=== PATIENT | male | born 1995 | race Caucasian/White ===

== ENCOUNTER → 2018-06-16 15:59 | Outpatient (CLI) | payer OTHER, SELFPAY ==
--- NOTE | 2018-06-16 16:02 | DI.MRI.S_ITS ---
PROCEDURE: MR ELBOW LT W CON INDICATIONS: PAIN IN LEFT ARM TECHNIQUE: Noncontrast coronal proton density fast spin echo and T2 fast spin echo with fat saturation, axial and sagittal T1 spin echo and T2 fast spin echo with fat saturation through the elbow. COMPARISON: None. FINDINGS: Image quality: Excellent. Lateral structures: The lateral ulnar collateral ligament and radial collateral ligament both appear intact. The overlying common extensor tendon also appears normal. Medial structures: The ulnar collateral ligament appears intact. The overlying common flexor tendon appears normal. The ulnar nerve appears normal in size and signal within the cubital tunnel. Anterior structures: The biceps and brachialis tendons both appear intact as they insert onto the proximal radius and ulna, respectively. No bicipitoradial bursal fluid. The median and radial neurovascular bundles appear normal; no focal muscle atrophy to suggest nerve impingement. Posterior structures: The conjoint triceps tendon from the long and lateral heads appears intact. The medial head of the triceps tendon also appears normal, with direct muscle insertion onto the olecranon. No olecranon bursal fluid. Bone and cartilage: No bone marrow contusions or fractures. No osteochondral injuries. IMPRESSION: Mild thickening of the distal insertion of the triceps tendon raising possibility of chronic or subacute tendinopathy, given the relative paucity of soft tissue edema. Please correlate clinically. Elsewhere, no definite internal derangement seen. Dictated by: Juancarlos Yao M.D. on 06/16/2018 at 16:46 Approved by: Juancarlos Yao M.D. on 06/16/2018 at 16:53
== END ==
PROVIDERS: Visit Provider Nurse Practitioner Family
DX: M79.602 Pain in left arm (principal)
CPT/HCPCS: 73221

== ENCOUNTER → 2018-07-08 12:51 | Outpatient (CLI) | payer OTHER, SELFPAY ==
[2018-07-08 13:41] LABS: Hematocrit 42.3 % (41-53); Hemoglobin 14.5 g/dL (13.5-17.5); Mean Corpuscular HGB Conc 34.3 % (30-36); Mean Corpuscular Hemoglobin 30.9 PG (26-34); Platelet Count 287 X10^3/uL (150-400); Red Cell Distribution Width 12.8 % (11.6-14.8); White Blood Cell Count 9.6 X10^3/uL (4.5-11.0)
== END ==
PROVIDERS: Visit Provider Orthopaedic Surgery Orthopaedic Surgery of the Spine
DX: Z01.818 Encounter for other preprocedural examination (principal)
CPT/HCPCS: 36415; 85027

== ENCOUNTER 2018-07-10 13:49 | Day surgery (SDC) | payer OTHER, SELFPAY ==
[2018-07-09 10:11] VITALS: BMI 29.9
--- NOTE | 2018-07-10 | DI.RAD.S_ITS ---
PROCEDURE: XR LUMBAR SPINE 2-3V INDICATIONS: L4-L5 MIRCODISCETCOMY TECHNIQUE: AP and lateral views of the lower lumbar spine were acquired. COMPARISON: None. FINDINGS: Intraoperative fluoroscopy demonstrates instrumentation of the posterior lower lumbar spine at approximately the L4-L5 level. IMPRESSION: Intraoperative fluoroscopy demonstrates instrumentation of the posterior lower lumbar spine at approximately the L4-L5 level. Please see operative report for further details. Dictated by: Orlando Ames M.D. on 07/10/2018 at 18:51 Approved by: Orlando Ames M.D. on 07/10/2018 at 18:53
[2018-07-10 14:16] VITALS: BP 115/76; PULSE 78; RESP 16; TEMP 36.8; O2SAT 96; BMI 29.9
[2018-07-10] MEDS: LACTATED RINGERS 1,000 ML 42 ML IV (14:42)
--- NOTE | 2018-07-10 15:38 | PM.PREOP ---
Pre-operative Note Interval Note Pre-op Check: Yes History & Physical Reviewed by Physician, Yes Exam Performed and Yes History & Physical exam performed today by Physician Changes: No
[2018-07-10] MEDS: CEFAZOLIN 2 GM/100 ML FROZ.PIGGY IV (15:58)
--- NOTE | 2018-07-10 16:37 | SUR.OPER ---
Prone on spine table, head in foam head support, padded chest and pelvic supports, gel pad at knees, lower legs supported by pillows; nipples, genitalia and toes free of pressure, arms secured on foam padded arm boards at <90 degrees abduction. Tape over blanket at thigh secured to table.
[2018-07-10] MEDS: methylPREDNISolone acet DEPO 40 MG/ML VIAL INJ (16:50)
[2018-07-10] MEDS: BUPIVACAINE 0.25% W/ EPI VIAL 50 ML INJ (16:50)
--- NOTE | 2018-07-10 17:39 | P.OP_ITS ---
Operative Date/Time/Diagnoses Date of procedure: 07/10/18 Time of procedure: 14:34 Pre-op diagnosis: 1. L4-5 lumbar disc herniation 2. Lumbar radiculopathy Post-op diagnosis: same Procedure & Clinicians Procedure: 1. L4-5 left microdiscectomy 2. Utilization of microsurgical technique and operating microscope Same procedure as scheduled: Yes Indications: Patient has been having chronic back pain and worsening lumbar radiculopathy. Patient failed multiple conservative management with worsening pain weakness and numbness in her lower extremity. Patient has been having difficulty performing activity of daily living. After discussing risks benefits of treatment options, patient elected proceed with surgery. Patient has been having chronic back pain and worsening lumbar radiculopathy. Patient failed multiple conservative management with worsening pain weakness and numbness in her lower extremity. Patient has been having difficulty performing activity of daily living. After discussing risks benefits of treatment options, patient elected proceed with surgery. Surgeon: Geena Webber [employer]ire Fabricator: Mayi Doss Click Yes if Unassisted: No Anesthesia Type: General Operative Notes Closure Type: primary Estimated Blood Loss (mL): 10 Blood products transfused: none Procedure in detail: Patient was seen in the preoperative area. Risks and benefits of the surgery was discussed with the patient. Informed consent was obtained from the patient and placed in the chart. Surgical site was marked. Patient was taken to the operative room. General anesthesia was administered. Prophylactic antibiotic was given to the patient less than 30 min before the incision was made. Patient was placed into a prone position on the Arnulfo table. Patient's back was then prepped and draped in the sterile fashion. Time- out was performed at this time. Using AP and lateral C-arm imaging the interval between L4-5 was identified and marked on patient's back. Patient has transitional anatomy. Comparison was made with his MRI versus the C-arm taken in the operating room to confirm the level for the surgery. A 1 inch incision 1 in from midline was made on the left side. The fascia was incised in line with skin incision. Globus MARS retractors was placed inside the incision and docked onto the L4 lamina. Using microsurgical technique and operating microscope, a L4-5 laminotomy was performed using a Kerrison rongeur. Liagamentum flavum was resected at the site of the laminotomy. The disc space at L4-5 was identified. Microdiscectomy was performed by incising the annulus with #11 blade. Microcurettes and pituitary was used to removed herniated disc fragments of disc from the epidural space. There was significant amount of herniated disc material that was sent a stuck to the dura and the posterior aspect of the vertebral body of L4. Careful resection and dissection was made to free up the disc fragments and pituitary was used to remove fragments from the epidural space. After the microdiskectomy was completed, the area medial lateral superior and inferior to the area of the microdiskectomy was inspected and explored using a micro curette. No other impinging structure was identified. The wound was then irrigated with sterile normal saline. 40 mg Depo-Medrol was placed into the epidural space. The deep fascia was closed with 1-0 Vicryl. The subcutaneous tissue was closed with 2-0 Vicryl. The skin was closed with 4- 0 Monocryl. Patient tolerated the procedure well. There were no complications. Patient was transferred recovery room in stable condition. Complications: none Condition: stable Disposition: PACU Plan for aftercare: Discharge to home
[2018-07-10 17:50] VITALS: BP 117/44; PULSE 86; RESP 6; TEMP 37.3; O2SAT 95
[2018-07-10 17:55] VITALS: BP 111/44; PULSE 84; RESP 8; O2SAT 97
[2018-07-10 18:00] VITALS: BP 119/80; PULSE 113; RESP 11; TEMP 36.9; O2SAT 99
[2018-07-10 18:05] VITALS: BP 110/70; PULSE 87; RESP 6; TEMP 36.9; O2SAT 95
[2018-07-10 19:08] VITALS: BP 113/59; PULSE 80; RESP 6; TEMP 36.9; O2SAT 100
== END 2018-07-10 19:10 | disposition home or self-care (01) ==
PROVIDERS: PCP Nurse Practitioner Family; Visit Provider Orthopaedic Surgery Orthopaedic Surgery of the Spine
PROC: (CPT 63030; principal; 2018-07-10 15:15)
DX: M51.16 Intervertebral disc disorders with radiculopathy, lumbar region (principal)
CPT/HCPCS: 63030; 72100; 76000; J0690; J1030; J1100; J2250; J2405; J2704; J3010

== ENCOUNTER → 2019-06-13 12:06 | Outpatient (CLI) | payer OTHER, SELFPAY ==
--- NOTE | 2019-06-13 | DI.MRI.S_ITS ---
PROCEDURE: MR LUMBAR SPINE WO CON INDICATIONS: Intervertebral disc disorders with radiculopathy, TECHNIQUE: Noncontrast sagittal T1 spin echo and T2 fast echo, sagittal STIR, axial T1 and T2 fast spin echo through the lumbar spine. In cases with scoliosis, additional coronal T2 fast spin echo may be performed. COMPARISON: [facility] [place], CR, XR LUMBAR SPINE 2 OR 3 VIEWS, 06/03/2019, 15:25. FINDINGS: Image quality: Excellent. Alignment and Curvature: There is normal bony alignment. There is partial lumbarization of S1. There is a rudimentary S1-S2 disc. Axial imaging was obtained from T12-L1 through S1-S2 Bone Marrow: Marrow is of normal overall signal. No acute vertebral body compression fractures. Spinal Cord: Conus medullaris terminates at the L1 level. Visualized cord demonstrates normal signal and size. Paraspinous Soft Tissues: No paravertebral masses. T12-L1: No canal stenosis or foraminal stenosis. L1-L2: Normal appearance. L2-L3: Normal appearance. L3-L4: Normal appearance. L4-L5: Mild disc bulge. Facet joints are unremarkable. No canal stenosis or foraminal stenosis. L5-S1: Annulus tear associated with mild diffuse disc bulge, which abuts the bilateral S1 nerve roots in the lateral recesses. Bilateral facet joint hypertrophy. Mild bilateral foraminal narrowing. S1-S2: Unremarkable. IMPRESSION: 1. Rudimentary S1-S2 disc. Axial imaging from T12-L1 through S1-S2. 2. Annulus tear this diffuse disc bulge at L5-S1. The S1 nerve roots are abutted bilaterally in the lateral recesses. 3. Bilateral facet hypertrophy at L5-S1. Dictated by: Faisal Bradshaw M.D. on 06/13/2019 at 20:31 Approved by: Faisal Bradshaw M.D. on 06/13/2019 at 20:37
== END ==
PROVIDERS: PCP Nurse Practitioner Family; Visit Provider Orthopaedic Surgery Orthopaedic Surgery of the Spine
DX: M51.16 Intervertebral disc disorders with radiculopathy, lumbar region (principal); M51.17 Intervertebral disc disorders with radiculopathy, lumbosacral region
CPT/HCPCS: 72148

== ENCOUNTER → 2020-02-05 15:13 | Outpatient (CLI) | payer OTHER, SELFPAY ==
[2020-02-07 00:59] LABS: COVID19 Sendout Not Detected (Not Detect)
== END ==
PROVIDERS: PCP Nurse Practitioner Family; Visit Provider Nurse Practitioner
DX: Z11.59 Encounter for screening for other viral diseases (principal)
CPT/HCPCS: 87635

== ENCOUNTER 2020-02-08 11:27 | Day surgery (SDC) | payer OTHER, SELFPAY ==
[2020-02-01 10:00] VITALS: BMI 30.1
[2020-02-08] VITALS (15 sets, daily range): BP systolic 103–149; BP diastolic 52–114; PULSE 71–120; RESP 10–23; TEMP 36.2–36.8; O2SAT 94–100; BMI 30.1
--- NOTE | 2020-02-08 | DI.RAD.S_ITS ---
PROCEDURE: XR LUMBAR SPINE 2-3V INDICATIONS: L4-5 TLIF TECHNIQUE: Two views of the lumbar spine were acquired. COMPARISON: [facility], CR, XR LUMBAR SPINE 2-3V, 07/10/2018, 16:35. FINDINGS: Bones: There is normal alignment is stab wished after transverse pedicle screw placement and vertical fixation thierry placement bilaterally crossing L4-L5, within interbody disc cage prosthesis in central position at this level. Soft tissues: Overlying bowel gas pattern is normal. No suspicious soft tissue calcifications. IMPRESSION: Normal alignment after spine fusion as discussed above. Dictated by: Abdoul Nagy M.D. on 02/08/2020 at 16:34 Approved by: Abdoul Nagy M.D. on 02/08/2020 at 16:36
[2020-02-08] MEDS: LACTATED RINGERS 1,000 ML 42 ML IV ×2 (11:56→15:47)
--- NOTE | 2020-02-08 13:03 | PM.PREOP ---
Pre-operative Note COVID-19 COVID-19 status: Negative Result date/Date tested (Pos, Neg/Pending): 02/06/20 Interval Note History & Physical reviewed/Exam performed by Physician: Yes Changes to H&P: No
[2020-02-08] MEDS: CEFAZOLIN 2 GM/100 ML FROZ.PIGGY IV ×2 (13:58→21:02)
[2020-02-08] MEDS: ACETAMINOPHEN IV 1,000 MG/100 ML VIAL 400 MG IV (14:27)
[2020-02-08] MEDS: BUPIVACAINE LIPOSOME 266 MG/20 ML VIAL INJ (14:50)
[2020-02-08] MEDS: BUPIVACAINE 0.25% W/ EPI 30 ML VIAL INJ (14:50)
--- NOTE | 2020-02-08 16:34 | P.OP_ITS ---
Operative Date/Time/Diagnoses Date of procedure: 02/08/20 Time of procedure: 13:34 Pre-op diagnosis: 1. L4-5 recurrent disc herniation 2. L4-5 spinal stenosis with radiculopathy Post-op diagnosis: same Procedure & Clinicians Procedure: 1. L4-5 Postero-lateral and posterior interbody fusion 2. L4-5 interbody cage placement. 3. L4-5 decompressive laminectomy with bilateral facetecomies 4. L4-5 Posterior non-segmental instrumentation 5. [place] of bone marrow from iliac crest 6. Utilization of microsurgical technique and operating microscope Same procedure as scheduled: Yes Indications: Patient has been having chronic back pain and worsening lumbar radiculopathy. Patient failed multiple conservative management with worsening pain weakness and numbness in her lower extremity. Patient has been having difficulty performing activity of daily living. After discussing risks benefits of treatment options, patient elected proceed with surgery. Surgeon: Geena Webber Weight Trainer: Debbie Cervantes Click Yes if Unassisted: No Anesthesia Type: General Operative Notes Closure Type: primary Specimen(s): none sent Prosthetic devices, grafts, tissues, transplants, or devices: Globus revolve screws, Rise cage Estimated Blood Loss (mL): 50 Procedure in detail: Patient was seen in the preoperative area. Risks and benefits of the surgery was discussed with the patient. Informed consent was obtained from the patient and placed in the chart. Surgical site was marked. Patient was taken to the operative room. General anesthesia was administered. Prophylactic antibiotic was given to the patient less than 30 min before the incision was made. Patient was placed into a prone position on the Arnulfo table. Patient's back was then prepped and draped in the sterile fashion. Time- out was performed at this time. Using AP and lateral C-arm imaging the interval between L4-5 was identified and marked on patient's back. A 2 inch incision 2 in from midline was made on the left side first. The fascia was incised in line with skin incision. Globus MARS retractors was placed inside the incision and docked onto the L4 lamina. Using microsurgical technique and operating microscope, a L4 laminectomy and L4-5 facetectomy was performed using a Kerrison rongeur. The disc space at L4-5 was identified. And a total diskectomy was performed at L4-5 level. The endplates were decorticated using a rasp and shaver. Patient was found have severe neural foramen stenosis along with epidural adhesion from previous microdiskectomy. The stenosis was decompressed and the epidural scar and adhesion was carefully resected with Kerrison rongeur. The total diskectomy and decortication was performed at L4-5 level in order to to accomplish a L4-5 fusion. The local bone from the laminectomy and facetectomy was saved for local bone grafting. After the total diskectomy and decortication was completed, Trifecta bone graft material was combined with local bone that was harvested earlier. At this time, a separate skin is incision was made over the iliac crest. A Jamshidi needle was inserted into the iliac crest through a separate skin incision. 5 cc of bone marrow aspiration was obtained through the separate skin incision using a Jamshidi needle from the iliac crest. The bone marrow aspiration was combined with local bone and the Trifecta bone grafting material. The bone grafting material was placed into the L4-5 interbody space along with a expandable cage. The cage was expanded to its maximum height using the torque limiting screwdriver. At this time a mirror image incision was made on the right side. The fascia was incised in line with the skin incision. Globus MARS retractor was inserted and docked onto the L4-5 posterolateral gutter. Using the power drill, posterior- lateral decortication was performed at L4-5 level until bleeding cortical bone was identified. The remaining bone grafting material was placed into the L4-5 posterior lateral gutter he order to accomplish posterolateral fusion at the L4- 5 level. Using the double C-arm technique, pedicle screws were placed into the L4-5 pedicles bilaterally. This was done by placing the Jamshidi needle into the pedicles, then placing the guidewires over the Jamshidi needle, and finally suresh cing the cannulated screws over the guidewires bilaterally. After the pedicle screws were placed, 2 titanium rods was locked into the heads of the pedicle screws using locking caps and torque limiting screwdriver. After all the hardware was placed, and confirmed with AP and lateral C-arm imaging, the wound was then irrigated with sterile normal saline and packed with Ray-Osbaldo gauze for 3 min to accomplish hemostasis. After the gauze was removed the deep fascia was closed with #1 Vicryl suture. The subcutaneous layer was closed with 2-0 Vicryl. The skin was closed with skin susannah. Patient tolerated the procedure well. There were no complications. Complications: none Post-operative Condition: stable Disposition: PACU Plan for aftercare: Admit to inpatient hospital
[2020-02-08] MEDS: MEPERIDINE 50 MG/ML INJ 25 MG IV (16:51)
--- NOTE | 2020-02-08 17:05 | SUR.PHASEI ---
Patient teary, reported this is the first time his leg has not hurt, only his back hurts.
[2020-02-08] MEDS: hydrOXYzine 50 MG/ML INJ 25 MG IM (17:14)
--- NOTE | 2020-02-08 17:33 | SUR.PHASEI ---
Patient reported being able to feel the SCD squeezing on his previously numb toes.
--- NOTE | 2020-02-08 18:07 | SUR.PHASEI ---
Patient transferred to the floor. Report given to Brina. VS stable, o2 sats have dropped into the 70s and 80s while dozing, patient rouses self and sats increase to mid 90s. IV saline locked, pink area above the IV site resolving. Back dressing CDI. Belongings bag, brace and cane with patient.
[2020-02-08] MEDS: OXYCODONE IR 5 MG TABLET 10 MG PO ×2 (19:03→22:46)
[2020-02-08] MEDS: hydrOXYzine pamoate 25 MG CAPSULE PO (19:04)
[2020-02-08] MEDS: SODIUM CHLORIDE 0.9% 1,000 ML 100 ML IV (20:00)
[2020-02-08] MEDS: SENNOSIDES 8.6 MG TABLET 17.2 MG PO (21:02)
[2020-02-08] MEDS: diphenhydrAMINE 25 MG TABLET PO (21:02)
[2020-02-08] MEDS: DULOXETINE 30 MG CAPSULE PO (21:02)
[2020-02-08] MEDS: DOCUSATE 100 MG CAPSULE PO (21:02)
[2020-02-08] MEDS: HYDROMORPHONE 0.5 MG INJ IV (21:09)
--- NOTE | 2020-02-08 21:30 | PC.NURSE ---
Admit/Evening Shift Note- Patient arrived to room via bed from PACU at 1800. Patient alert and oriented and able to make needs known to staff. Admission questions done, medications and allergies [id number], physical assessment completed, and skin check done. Oriented patient to bed and bed controls, room , lights, phone, menu, bathroom, and call lyon/TV remote. dressing to lower back C/D/I. Safety measures in place. patient agrees to call for assistance. Bed alarm activated. call lyon and phone within reach. will continue to monitor.
[2020-02-09 00:25] VITALS: BP 117/58; PULSE 71; RESP 18; TEMP 36.2; O2SAT 98
[2020-02-09] MEDS: OXYCODONE IR 5 MG TABLET 10 MG PO ×4 (01:38→13:12)
--- NOTE | 2020-02-09 03:38 | PC.NURSE ---
Pt resting comfortably. Q 4 neuro checks WNL. Notes normal numbness in L leg and some numbness in bilateral toes. Pain located lumbar area, medicated w/Oxycodone w/good results.
[2020-02-09 05:54] VITALS: BP 132/75; PULSE 76; RESP 18; TEMP 36.4; O2SAT 100
[2020-02-09] MEDS: CEFAZOLIN 2 GM/100 ML FROZ.PIGGY IV (05:59)
--- NOTE | 2020-02-09 07:58 | PM.DS.1 ---
History of Present Illness History of Present Illness Chief complaint: *OPB* Discharge Providers Provider Discharge Date: 02/09/20 Primary care physician: Sina Cobos Consults: 02/08/20 18:08 Consult to Occupational Therapy Evaluate & Treat Comment: Physician Instructions: Evaluate and treat Consult to Physical Therapy Evaluate & Treat Comment: Physician Instructions: Evaluate and Treat Discharge provider: Geena Webber MD Exam Vital Signs (past 8 hours): - 02/09/20 00:25 02/09/20 05:54 Temperature 97.1 F L 97.6 F Pulse Rate 71 76 Respiratory Rate 18 18 Blood Pressure 117/58 L 132/75 Pulse Oximetry 98 100 Oxygen Delivery Method Nasal Cannula Oxygen Flow Rate 2 Discharge Plan Discharge Plan Patient Disposition: Home Discharge Med Rec/Prescriptions Prescriptions: New oxycodone 5 mg Tablet 5 - 10 mg PO Q4-5H PRN (Reason: Pain, Severe (7-10)) Qty: 80 RF: 0 hydroxyzine pamoate 25 mg Capsule 25 mg PO Q4HR PRN (Reason: Nausea And Vomiting) Qty: 50 RF: 0 Continued rizatriptan [Maxalt] 10 mg Tablet 5 mg PO DAILY PRN (Reason: Migraines) RF: 0 duloxetine 30 mg Capsule,Delayed Release(Dr/Ec) 30 mg PO SEEINSTR RF: 0 diphenhydramine HCl [Benadryl] 25 mg Capsule 25 mg PO BEDTIME RF: 0 Discontinued naproxen 500 mg Tablet 500 mg PO DAILY RF: 0 Discharge Orders: Discharge (Order); Ordered 02/09/20 Ordered By: Geena Webber Provider Discharge Instructions Diet: Diet as Tolerated and Regular Activity: Limit bending and twisting Skin/Wound/Dressing Care Report to your healthcare provider any signs of infection, such as:: chills, fever, night sweats, increased pain, unusual drainage and unusual redness Dressing: Keep dressing clean and dry May shower with dressing covered starting today Visit Report/Discharge Packet Instructions: DI for Transforaminal Lumbar Interbody Fusion Stand Alone Forms: Surgery Discharge Discharge Data Primary Care Provider: Sina Cobos Attending Provider: Geena Webber VTE Deep Vein Thrombosis/Pulmonary Embolism Present on Admission: No
[2020-02-09 08:13] VITALS: BP 130/59; PULSE 100; RESP 16; TEMP 36.4; O2SAT 99
[2020-02-09] MEDS: DOCUSATE 100 MG CAPSULE PO (08:41)
[2020-02-09] MEDS: NAPROXEN 250 MG TABLET 500 MG PO (08:42)
[2020-02-09] MEDS: DULOXETINE 30 MG CAPSULE 60 MG PO (08:42)
[2020-02-09 08:47] VITALS: PULSE 97; RESP 18; O2SAT 99
--- NOTE | 2020-02-09 09:24 | OT.IP.EVAL ---
Current Diagnoses Intervertebral disc disorders with radiculopathy, lumbar region (02/08/20) Surgery Performed Operation Date: 11/09/19 12:45 <No data on this case meets the specified criteria> Operation Date: 02/08/20 13:45 Actual Procedures p L4-5 TLIF - Geena Webber MD Past Medical History (Last Updated 02/01/20 @ 10:13 by Danielle Dias RN) Anxiety (Acute) Arthritis (Acute) Depression (Acute) Headache, migraine (Acute) Lumbar disc prolapse with compression radiculopathy (Acute) Radiculopathy, lumbosacral region (Acute) Sciatica (Acute) Stomach ulcer (Acute) Surgical History (Last Updated 02/01/20 @ 10:13 by Danielle Dias RN) History of colonoscopy (Acute 2018) History of esophagogastroduodenoscopy (EGD) (Acute 2018) Hx of microdiscectomy (Acute 06/2018) S/P epidural steroid injection (Acute) [place] teeth removed (Acute) Occupational Therapy Inpatient Evaluation/Re-Eval M1 PT/OT-IP Prior Functional Status Start: 02/09/20 12:15 Freq: NEEDED Status: Active Protocol: Document 02/09/20 08:43 [facility] (Rec: 02/09/20 12:32 [facility] [id number]) Medical Review Prior Functional Status Medical History Reviewed Yes Communication Pt is an effective verbal communicator. Mobility and Gait Pt is modified independent and able to walk up to 300 feet without assisted device. He uses a SPC for longer distances. He has L LE radiculopathy, atrophy, and weakness at baseline. Activities of Daily Living and IADL's Pt is IND with ADL's though he notes dressing has been slow and labored. Social History Household Members none Living Arrangements Apartment/Condo Number of Stairs To Enter/Railing? Pt lives in a third floor apartment with two flights of stairs. There are wide B hand rails. Pt tends to use the left rail going up and down. 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 He lives alone but has a co- worker, Kun, who plans to check on him every 3-4 hours as needed to offer assist. M2 OT-IP Current Condition Start: 02/09/20 12:15 Freq: Status: Active Protocol: Document 02/09/20 08:43 [facility] (Rec: 02/09/20 12:32 [facility] [id number]) Occupational Therapy Current Condition Current Condition Evaluation Date 02/09/20 Treatment Diagnosis Spinal Stenosis, s/p L4-5 TLIF Diagnosis Onset Date 02/08/20 Post Operative Precautions Lumbar Precautions Log Roll,No Twisting,Limit Bending,Lifting Restriction of 10 lbs,Gait Belt above Incisional Area M3 OT- IP Subjective and Pain Start: 02/09/20 12:15 Freq: Status: Active Protocol: Document 02/09/20 08:43 [facility] (Rec: 02/09/20 12:32 [facility] [id number]) OT- Subjective Occupational Therapy Visit Type Type Initial Evaluation Visit Start Time 08:43 Visit Stop Time 09:24 Total Visit Minutes 51 Occupational Therapy Visit Comments Patient Comments Pt wiling to do OT eval and PT present for part of the session. Patient/Caregiver Goals To go home. OT Pain Assessment Pain When Pain Assessed During Mobility Pain Present Pain Present Pain Reported Location right wrist Intensity 6 Scale Used Numeric (0 - 10) M4 OT- IP ADL's Start: 02/09/20 12:15 Freq: Status: Active Protocol: Document 02/09/20 08:43 [facility] (Rec: 02/09/20 12:32 [facility] [id number]) OT ALK-Ybwa-Vgjrcar General Evaluation Self-Feeding Ability Independent OT ADL-Grooming General Evaluation Grooming Ability Standby Assistance Areas Needing Assistance Retrieving/Set-up of Grooming Items Comments OT Grooming Comments VC to incorporate back precautions for needs. Educated to hinge at hips or spit into a cup. OT ADL-Oral Care General Eval Oral Care Ability Independent OT ADL-Dressing General Eval Lower Body Dressing Ability Maximum Assistance Areas Needing Assistance Socks Comments OT Dressing Comments Able to issue LB dresing equipment and pt not able to independently after education aury/doff his socks. Pt has tie shoes at home and may be best for friend to assist anyways if going out. OT ADL-Toileting General Evaluation Toileting Ability Standby Assistance Comments OT Toileting Comments Educated pt to stand with FWW over the toilet. Pt able to sit to toilet but heavy use of FWW to help lower himself down to the toilet. VC for back precautions to lean to one side and wipe or stand to wipe. In addition use of wet wipe can help to increased his ease for hygiene needs. OT ADL-Bathing Comments OT Bathing Comments Pt not wanting to shower at this time. Pt may need a shower chair pending his balance and have friend around for the first shower as well. M5 OT- IP IADL's Start: 02/09/20 12:15 Freq: Status: Active Protocol: Document 02/09/20 08:43 [facility] (Rec: 02/09/20 12:32 [facility] [id number]) OT-Instrumental Activities of Daily Living Home Safety Awareness Awareness of Need for Assistance at Home Good Awareness Ability to Problem Solve Emergency Able to Problem Solve Situations Medication Management Medication Management No Deficits Identified Money Management Money Management No Deficits Identified Meal Preparation Meal Preparation Caregiver Provides Assist Farm Assistant Farm Assistant Caregiver Provides Assist Driving Driving Caregiver Provides Assist M6 OT- IP Functional Cognition Start: 02/09/20 12:15 Freq: Status: Active Protocol: Document 02/09/20 08:43 [facility] (Rec: 02/09/20 12:32 [facility] [id number]) Cognitive Factors Limiting Selfcare Function Cognitive Ability Level of Alertness Alert Patient Orientation Name,Age,Birthday,Month,Date, Year,Day of Week,Place, Situation Attention Span Ability Capable of Focused Attention, Capable of Sustained Attention Ability to Follow Commands Able to Follow Multi-Step Commands Memory Description No Deficits Noted Safety Awareness No Deficits Noted Cognitive Comments Cognitive Assessment Comments Pt able to recall back precautions and appears at baseline with no cognitive deficits. OT- Vision and Hearing OT- Hearing Assessment OT- Hearing Assessment WFL OT- Vision Assessment Visual Acuity WFL M7 OT- IP Mobility and Balance Start: 02/09/20 12:15 Freq: Status: Active Protocol: Document 02/09/20 08:43 [facility] (Rec: 02/09/20 12:32 [facility] [id number]) OT- Bed Mobility Assessment Rolling Level of Assistance Minimal Assistance Supine to Sit Supine to Sit Assist Minimal Assistance OT-Transfer Assessment Sit to and From Stand Sit to and from Stand Standby Assistance,Contact Guard Assistance Transfers Transfer Ability Standby Assistance,Contact Guard Assistance Technique Transfer Destination Bed,Chair,Toilet Transfer Technique Stand Step Pivot Devices Transfer Assistive Devices Gait Belt,Front Wheeled Walker Comments Mobility Comments Pt heavy use of FWW to help stand from lower surfaces especially if not able to push or use of grab bar. CGA when up on his feet and on level surfaces able to be SBA with FWW. Pt may need FWW , PT to assess whether pt will need FWW versus his SPC. OT- Balance Assessment Sitting Balance and Reactions Static Sitting Balance Ability Normal Dynamic Sitting Balance Ability Good Standing Balance and Reactions Static Standing Balance Ability Good Dynamic Standing Balance Ability Fair M8 OT- IP Objective Assessments Start: 02/09/20 12:15 Freq: Status: Active Protocol: Document 02/09/20 08:43 [facility] (Rec: 02/09/20 12:32 [facility] [id number]) OT Gross Range of Motion Upper Extremity Range of Motion Assessment Within Functional Limits OT Strength Upper Extremity Strength Assessment Within Functional Limits OT-Muscle Tone Assessment Muscle Tone WNL Yes M9 OT- IP Assessment and Plan Start: 02/09/20 12:15 Freq: Status: Active Protocol: Document 02/09/20 08:43 [facility] (Rec: 02/09/20 12:32 [facility] [id number]) OT Summary Assessment and Plan Potential Rehabilitation Potential Good Analytic Complexity at Evaluation Low Summary OT Impairments Pain,Functional Mobility, Dressing,Bathing,Shower Transfers Progress Towards Goals Progressing Toward Goals Assessment Summary Pt low complexity and main barrier is his flights of steps to get to his apartment . Pt now having to use FWW as a little unsteady and may need to had FWW order prior to discharge. Pt has been given LB dressing equipment and has good understanding and safety for dressing and toileting needs. Pending discharge, pt would benefit from showering prior to going home to help determine whether he will need a shower chair at home for safety. When stable, pt to go home with friend to come and assist every3-4 hours. Goals Dressing Goal Independent Toileting Goal Independent Bathing Goal Independent Toilet Transfer Goal Independent Shower Transfer Goal Independent Patient/Caregiver Education Goal Demonstrate Post-Op Precautions Days to Meet Goals 2 Frequency of Treatment Frequency Of Treatment Once a Day Treatment Plan OT Treatment Plan ADL Training,Functional Mobility,Patient/Family Education,Discharge Planning Other Treatment Recommendations and Next Shower if still here Treatment Focus Discharge Recommendations OT Discharge Recommendations Home with Assistance Home Equipment Needs possibly FWW and shower chair Transportation Needs at Discharge Private Vehicle
--- NOTE | 2020-02-09 10:06 | PT.IIE ---
Current Diagnoses Intervertebral disc disorders with radiculopathy, lumbar region (02/08/20) Surgery Performed Operation Date: 11/09/19 12:45 <No data on this case meets the specified criteria> Operation Date: 02/08/20 13:45 Actual Procedures p L4-5 TLIF - Geena Webber MD Surgical History (Last Updated 02/01/20 @ 10:13 by Danielle Dias, RN) History of colonoscopy (Acute 2018) History of esophagogastroduodenoscopy (EGD) (Acute 2018) Hx of microdiscectomy (Acute 06/2018) S/P epidural steroid injection (Acute) [place] teeth removed (Acute) Medical History (Last Updated 02/01/20 @ 10:13 by Danielle Dias RN) Anxiety (Acute) Arthritis (Acute) Depression (Acute) Headache, migraine (Acute) Lumbar disc prolapse with compression radiculopathy (Acute) Radiculopathy, lumbosacral region (Acute) Sciatica (Acute) Stomach ulcer (Acute) Physical Therapy Inpatient Evaluation/Re-Eval M1 PT/OT-IP Prior Functional Status Start: 02/09/20 08:31 Freq: NEEDED Status: Active Protocol: Document 02/09/20 09:42 AW (Rec: 02/09/20 10:06 AW [id number]) Medical Review Prior Functional Status Medical History Reviewed Yes Communication Pt is an effective verbal communicator. Mobility and Gait Pt is modified independent and able to walk up to 300 feet without assistive device. He uses a SPC for longer distances. He has L LE radiculopathy, atrophy, and weakness at baseline. Activities of Daily Living and IADL's Pt is IND with ADL's though he notes dressing has been slow and labored. Social History Household Members none Living Arrangements Apartment/Condo Number of Stairs To Enter/Railing? Pt lives in a third floor apartment with two flights of stairs. There are wide B hand rails. Pt tends to use the left rail going up and down. 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 He lives alone but has a co- worker, [place], who plans to check on him every 3-4 hours as needed to offer assist. M2 PT-IP Current Condition Start: 02/09/20 08:31 Freq: NEEDED Status: Active Protocol: Document 02/09/20 09:42 AW (Rec: 02/09/20 10:06 AW [id number]) Physical Therapy Current Condition Current Condition Evaluation Date 02/09/20 Treatment Diagnosis L4-5 TLIF; difficulty in walking Onset Date 02/08/20 Precautions Lumbar Precautions Log Roll,No Twisting,Limit Bending,Lifting Restriction of 10 lbs,Gait Belt above Incisional Area M3 PT-IP Subjective Start: 02/09/20 08:31 Freq: NEEDED Status: Active Protocol: Document 02/09/20 09:42 AW (Rec: 02/09/20 10:06 AW [id number]) Subjective Physical Therapy Visit Type Type Initial Evaluation Visit Start Time 08:47 Visit Stop Time 09:11 Total Visit Minutes 24 Physical Therapy Visit Comments Patient Comments Pt is willing to participate with PT Therapy Pain Assessment Pain When Pain Assessed During Mobility Pain Present Pain Present Pain Reported Location low back Intensity 6 Scale Used 5/10 at rest; 6/10 with mobility Pain Management Techniques Re-positioning,Timing of Activity with Medications M4 PT-IP Mobility and Gait Start: 02/09/20 08:31 Freq: NEEDED Status: Active Protocol: Document 02/09/20 09:42 AW (Rec: 02/09/20 10:06 AW [id number]) PT-Bed Mobility Assessment Rolling Type of Rolling Log Rolling,Roll to Right Level of Assist Minimal Assistance,1 Person Assistance Supine to Sit Supine to Sit Minimal Assistance,1 Person Assistance Scooting Scooting to Edge of Bed Standby Assistance PT-Transfer Assessment Sit to and From Stand Sit to and from Stand Contact Guard Assistance,Use of Upper Extremities Equipment Transfer Assistive Device Gait Belt,Front Wheeled Walker Transfers Transfer Destination Chair Transfer Technique pt ambulated with FWW Transfer Ability Level of Assist Contact Guard Assistance,Use of Upper Extremities Comments Mobility Comments Supine BP was 129/73 HR112. Pt completed log roll to his right side and transitioned sidelying to sit min A x 1. In sitting, pt complained of lightheadedness with BP 123/96 HR 127. With symptoms clearing, pt stood with FWW CGA. BP in standing was 117/78 HR 114. Pt was able to weight shift and take small marching steps in place 1 minute and then walked around the foot of the bed to the chair CGA using FWW. He transferred to the chair CGA and cues to use both hands on the chair arms in order to maintain lumbar neutrality. After transfer, BP was 140/56 HR 87. Gait Assessment Gait Gait Assistance Required: Contact Guard Assist Distance (Feet) 15 Assistive Devices Assistive Device Gait Belt,Front Wheeled Walker Gait Deviations General Gait Pattern Antalgic,Decreased Stride Length,Decreased Feet Clearance,Flexed Trunk,Lateral Trunk Lean,Step-to Gait Factors Limiting Gait Function Factors Limiting Gait Function Decreased Activity Tolerance, Decreased Sensation,Decreased Strength,Limited Range of Motion,Pain,Poor Balance Comments Gait Comments Pt ambulated in the room only. His trunk was only mildly flexed and he responded well to cues for posture. He used the FWW safely. Stair Climbing Assessment Comments Stair Climbing Comments Not assessed. Pt must clear stairs prior to discharge. PT-Balance Assessment Sitting Balance and Reactions Static Sitting Balance Ability Normal Dynamic Sitting Balance Ability Good Standing Balance and Reactions Static Standing Balance Ability Good Dynamic Standing Balance Ability Good Device Used FWW M5 PT-IP Objective Assessments Start: 02/09/20 08:31 Freq: NEEDED Status: Active Protocol: Document 02/09/20 09:42 AW (Rec: 02/09/20 10:06 AW [id number]) Orientation Orientation/Cognition Level of Alertness Alert Orientation Name,Day of Week,Place, Situation Language Function Ability No Deficits Noted Safety Awareness Understands Safety Issues Memory Description No Deficits Noted Gross Range of Motion Lower Extremity ROM Assessment Within Functional Limits Strength Lower Extremity Strength Assessment Left Impaired Hip 3/5 Knee 4/5 Ankle 4+/5 Comments Strength Comments R LE grossly 5/5 Coordination Assessment Gross Coordination Gross Coordination WNL Sensation Assessment Sensation Gross Sensation Left LE Impaired Light Touch Impaired Sensation Description Paresthesia,Numbness Comments Sensation Comments Pt reports impaired light touch L LE consistent with history but notes improvement after surgery Muscle Tone Muscle Tone WNL Yes M6 PT-IP Treatment Start: 02/09/20 08:31 Freq: NEEDED Status: Active Protocol: Document 02/09/20 09:42 AW (Rec: 02/09/20 10:06 AW [id number]) Physical Therapy Treatment Exercises Exercises Ankle Pumps Education Education Provided Precautions,Weight Bearing Status,Post-Op Packet,Safety Other Treatments Other Treatment Performed Provided education on role of PT, plan of care, post op spinal precautions, and safe use of FWW. M7 PT-IP Assessment and Plan Start: 02/09/20 08:31 Freq: NEEDED Status: Active Protocol: Document 02/09/20 09:42 AW (Rec: 02/09/20 10:06 AW [id number]) PT Summary Assessment and Plan Potential Rehabilitation Potential Good Status of Condition at Evaluation Evolving Summary Impairments Pain,ROM,Strength,Balance, Sensation,Bed Mobility, Transfers,Gait,Activity Tolerance Assessment Summary Lai is a 25 yo man seen for PT evaluation on POD1 following L4-5 TLIF. He is modified independent at baseline with use of SPC for distances >300 feet. He lives in a 3rd floor apartment without an elevator. On evaluation, pt required min assist of one for bed mobility and CGA for transfers and short bout ambulation with FWW . Pt would benefit from a FWW for home use in the short term . PT anticipates he will be safe to discharge home with assist once medically cleared. Goals Bed Mobility Goal Independent Transfer Goal Independent,Four Wheeled Walker Gait Goal Independent,Four Wheel Walker Gait Distance 200 Other Goals - up/down 15 steps x 2 using L hand rail SBA Days to Meet Goals 2 Frequency of Treatment Frequency Of Treatment Twice a Day Treatment Plan Physical Therapy Treatment Plan Bed Mobility Training,Transfer Training,Gait Training, Therapeutic Exercise,Balance Retraining,Post Op Education, Discharge Planning,Hot or Cold Pack,Neuromuscular Re-ed Other Recommendations and Next Treatment review precautions; gait Focus training with FWW; stairs prior to discharge Recommendations To Nursing Amount of Assist Needed Standby Assistance Discharge Recommendations PT Discharge Recommendations Home with Assistance, Outpatient PT Equipment Needed for Home Before FWW Discharge Transportation Needs at Discharge Private Vehicle
[2020-02-09 11:32] VITALS: BP 123/66; PULSE 64; RESP 16; TEMP 36.4; O2SAT 97
--- NOTE | 2020-02-09 11:34 | CM.DANOTE ---
Addendum entered by Morena Willams R.N. 02/09/20 14:58: Spoke with CONFIGURATION TECHNICIAN about patient needing a FWW at D/C for his recovery. Cm/RN placed order and PT notified. Morena Willams RN Original Note: DCP assessment: EMR Reviewed: Patient is a 25 yr old male who was admitted for multiple level lumbar back surgery preformed by Dr. GAMA. CM/RN met with patient at the bedside and explained role. Patient was alert and oriented x3 at time of visit. patient currently lives in a 3rd level apartment with by himself but has a friend kathie who will be checking in on him while he recovers. Patient is Independent with all ADL's and drives [place]. Patient has PT step evaluation to do this afternoon prior to D/c home. DME- has a cane at home and will use a FWW during recovery. Plans on OP PT after first post op with surgeon I: Emerson martinez Plan: D/C home with friends support. No identified D/C planning needs noted at this time- CM department will follow to assist with any new D/C planning needs that may arise. Morena Willams RN Discharge Planning/Care Management Advanced directive, confirm from FAMILY Start: 02/08/20 19:18 Freq: Q24H Status: Active Protocol: Document 02/08/20 19:18 AGW (Rec: 02/08/20 20:10 AGW [id number]) Advance Directive, confirm on record Time 19:00 Person contacted patient Copy received No CM Discharge Assessment Start: 02/09/20 11:33 Freq: Status: Active Protocol: Document 02/09/20 11:33 HS (Rec: 02/09/20 11:34 HS [id number]) Discharge Planning Assessment Assigned Geomorphologist Morena Willams RN Advance Directives? Yes Advance Directives on File No History Provided By Patient Has Patient been admitted in last 30 No days? Prior Living Arrangements Apartment/Condo Household Members none Type of transporation used prior to Drives own vehicle admit Independent with ADL's Yes Is patient alert and oriented? Yes Caregiver for Another No DME Already Rented / Owned FWW / Walker Patient/Family Preference OP PT Therapy Barriers to Discharge No Discharge Plan Home Referrals Initiated None needed Whiteboard Updated in Patient Room with Yes name and ext. # of Geomorphologist Review Status In Process Next Review Type Continued Stay Review Pre-Anesthesia Assessment Start: 02/01/20 10:00 Freq: Status: Complete Protocol: Document 02/01/20 10:00 [facility] (Rec: 02/01/20 10:50 [facility] [id number]) Pre-Anesthesia Assessment Patient Information Reviewed Via Phone Assessment Assessment Completed With Patient Comment Pt needs to complete labs, needs to schedule COVID Primary Care Provider Seen Specialist in Last 12 Months Yes Specialist Seen Orthopedist Comment PCP Jannet Primary Language Bhutanese Journeyman Painter Required No Height 177.8 cm Weight 95.254 kg Body Mass Index (BMI) 30.1 Hearing Ability Normal Visual Assist Glasses Dentition Type Teeth, Natural Present,Teeth, Missing Barriers to Learning None Hx Anesthesia Reactions No Hx Family Anesthesia Reaction No Hx Malignant Hyperthermia No Hx Blood Transfusions No Anesthesia Review Requested No J2Ee Android Developer No alcohol intake current alcohol intake frequency a few times a month Smoking Status Former smoker how long ago did patient quit smoking Quit 2015 Substance Use Type does not use Pain Present Pain Reported Musculoskeletal Symptoms Abnormal Gait,Back Pain, Difficulty Walking,Muscle Weakness,Numbness,Radiating Pain into Limb History of Falling (Recent or History of No ) Patient is completely paralyzed or No completely immobile Prosthesis or Orthotic Device Cane Mental Status Oriented to own ability Is patient on oxygen? No Does patient have [place]/SOB No Hx Sleep Apnea No Currently Taking a Beta Rayna No Can You Climb a Flight of Stairs Without Yes SOB Hx Chest Pain No Hx SOB No Hx Syncope or Dizziness No Anti-Coagulant Therapy No Has a Big Data Lead No Cardiac Testing No Hx Pacemaker/ICD No Pacemaker Rep Required? No Cardiac Clearance Received Not Applicable Diet Type At Home Regular dysphagia No Urinary Catheter Present No Hx Urinary Self Catheterization No Diabetes No Hx Drug Resistant Organism No Presence of External or Internal Medical No Devices Have you had any close contact with No someone diagnosed with COVID-19? Marital Status Single Lives With none Prior Living Arrangements Apartment/Condo Support System Friend(s) Patient Discharge Plan Description Return Home Comment Pt advised overnight length of stay per surgeon Feels Safe in Current Environment Yes Been Physically Hurt or Threatened By a No Person in Current Environment Do you have thoughts of harming yourself None or others? Are you currently considering suicide? No Do you have a plan to hurt yourself or No Plan others? Do You Have Any Spiritual Beliefs That No May Affect Your HC Choices? Do You Have Any Cultural Practices That No May Affect Your HC Choices? Comment Agnostic Who Can We Speak to About Patient's Care Family, friends Identifying Code for Release of Patient Declines to issue Information Health Care Proxy/Next of Kin Rupinder tam) Health Care Proxy Emergency Contact Name Rupinder (german) Emergency Contact Advance Directives? No Power of Captain Waiter/Waitress No PAC Instructions Durable medical equipment, Medications to take/avoid, Nasal antibiotic,No ETOH/ petroleum product on skin DOS, NPO,Pre-surgical wash,Sturdy shoes/comfortable clothes,Do not bring valuables and remove jewelry
--- NOTE | 2020-02-09 14:51 | PT.IPTN ---
Current Diagnoses Intervertebral disc disorders with radiculopathy, lumbar region (02/08/20) Surgery Performed Operation Date: 11/09/19 12:45 <No data on this case meets the specified criteria> Operation Date: 02/08/20 13:45 Actual Procedures p L4-5 TLIF - Geena Webber MD Physical Therapy Treatment Note M2 PT-IP Current Condition Start: 02/09/20 08:31 Freq: NEEDED Status: Discharge Protocol: Document 02/09/20 09:42 AW (Rec: 02/09/20 10:06 AW [id number]) Physical Therapy Current Condition Current Condition Evaluation Date 02/09/20 Treatment Diagnosis L4-5 TLIF; difficulty in walking Onset Date 02/08/20 Precautions Lumbar Precautions Log Roll,No Twisting,Limit Bending,Lifting Restriction of 10 lbs,Gait Belt above Incisional Area M3 PT-IP Subjective Start: 02/09/20 08:31 Freq: NEEDED Status: Discharge Protocol: Document 02/09/20 14:27 CLB (Rec: 02/09/20 16:02 CLB [id number]) Subjective Physical Therapy Visit Type Type Treatment Note Visit Start Time 14:27 Visit Stop Time 14:51 Total Visit Minutes 24 Number of KNOT SAW OPERATOR Visits 1 Physical Therapy Visit Comments Patient Comments Pt is willing to participate with PT Therapy Pain Assessment Pain When Pain Assessed At Rest Pain Present Pain Present Pain Reported Location low back Intensity 4 Scale Used 5/10 with mobility Pain Management Techniques Re-positioning,Timing of Activity with Medications M4 PT-IP Mobility and Gait Start: 02/09/20 08:31 Freq: NEEDED Status: Discharge Protocol: Document 02/09/20 14:27 CLB (Rec: 02/09/20 16:02 CLB [id number]) PT-Transfer Assessment Sit to and From Stand Sit to and from Stand Standby Assistance,Use of Upper Extremities Equipment Transfer Assistive Device Gait Belt,Front Wheeled Walker Transfers Transfer Destination Chair Transfer Technique pt ambulated with FWW Transfer Ability Level of Assist Standby Assistance,Use of Upper Extremities Comments Mobility Comments Pt recalls 3/3 back precautions. Pt stood from chair SBA and ambulated ~40ft with FWW SBA, pt then trialed cane ambulating 20ft with CGA but pain increased and gait was unsteady, pt returned to using FWW and a FWW will be dispensed to pt at d/c. Pt then ambulated in [place] ~130ft with [facility] [employer] SEAT CUSHION TRIMMER present for stair training as second person for safety. Pt descended steps using left rail with step to step CGA, pt then ascended steps using left rail step to step SBA. Pt then ambulated another 130ft to room, pt sat in chair SBA. Left pt in chair with call light and all other needs within reach. Gait Assessment Gait Gait Assistance Required: Standby Assistance Distance (Feet) 300 Assistive Devices Assistive Device Gait Belt,Front Wheeled Walker Gait Deviations General Gait Pattern Antalgic,Decreased Stride Length,Decreased Feet Clearance,Flexed Trunk,Lateral Trunk Lean Factors Limiting Gait Function Factors Limiting Gait Function Decreased Activity Tolerance, Decreased Sensation,Decreased Strength,Limited Range of Motion,Pain,Poor Balance Comments Gait Comments Pt ambulated in [place] requiring SBA with FWW. Pt used small step through gait pattern and uses UE to ease pain in back during gait. Stair Climbing Assessment Evaluation Level of Assist On Stairs Standby Assistance,Contact Guard Assistance Devices Stair Climbing Assistive Devices Left Railing Technique/Endurance Stair Climbing Direction Ascend and Descend Stair Climbing Technique Step to Step Number of Steps Climbed 30 Stair Climbing Set # Repetitions (reps) 1 Comments Stair Climbing Comments Pt able to climb stairs in stairwell near ICU unit with DINING CHAIR SEAT CUSHION TRIMMER present for safety. Pt able to climb stairs with minimal increase in pain. M5 PT-IP Objective Assessments Start: 02/09/20 08:31 Freq: NEEDED Status: Discharge Protocol: Document 02/09/20 09:42 AW (Rec: 02/09/20 10:06 AW [id number]) Orientation Orientation/Cognition Level of Alertness Alert Orientation Name,Day of Week,Place, Situation Language Function Ability No Deficits Noted Safety Awareness Understands Safety Issues Memory Description No Deficits Noted Gross Range of Motion Lower Extremity ROM Assessment Within Functional Limits Strength Lower Extremity Strength Assessment Left Impaired Hip 3/5 Knee 4/5 Ankle 4+/5 Comments Strength Comments R LE grossly 5/5 Coordination Assessment Gross Coordination Gross Coordination WNL Sensation Assessment Sensation Gross Sensation Left LE Impaired Light Touch Impaired Sensation Description Paresthesia,Numbness Comments Sensation Comments Pt reports impaired light touch L LE consistent with history but notes improvement after surgery Muscle Tone Muscle Tone WNL Yes M6 PT-IP Treatment Start: 02/09/20 08:31 Freq: NEEDED Status: Discharge Protocol: Document 02/09/20 09:42 AW (Rec: 02/09/20 10:06 AW [id number]) Physical Therapy Treatment Exercises Exercises Ankle Pumps Education Education Provided Precautions,Weight Bearing Status,Post-Op Packet,Safety Other Treatments Other Treatment Performed Provided education on role of PT, plan of care, post op spinal precautions, and safe use of FWW. M7 PT-IP Assessment and Plan Start: 02/09/20 08:31 Freq: NEEDED Status: Discharge Protocol: Document 02/09/20 14:27 CLB (Rec: 02/09/20 16:02 CLB [id number]) PT Summary Assessment and Plan Potential Rehabilitation Potential Good Status of Condition at Evaluation Evolving Summary Impairments Pain,ROM,Strength,Balance, Sensation,Bed Mobility, Transfers,Gait,Activity Tolerance Assessment Summary Pt able to ambulate ~300ft SBA with FWW using small step through gait pattern, steady gait and small step through gait pattern. Pt will d/c home with FWW as pt is steadier with FWW. Pt able to climb two flights of stairs with minimal increase in pain and good safety awareness. Pt able to d/c home with assist when medically stable. Goals Bed Mobility Goal Independent Transfer Goal Independent,Four Wheeled Walker Gait Goal Independent,Four Wheel Walker Gait Distance 200 Other Goals - up/down 15 steps x 2 using L hand rail SBA Days to Meet Goals 2 Frequency of Treatment Frequency Of Treatment Twice a Day Treatment Plan Physical Therapy Treatment Plan Bed Mobility Training,Transfer Training,Gait Training, Therapeutic Exercise,Balance Retraining,Post Op Education, Discharge Planning,Hot or Cold Pack,Neuromuscular Re-ed Recommendations To Nursing Amount of Assist Needed Standby Assistance Discharge Recommendations PT Discharge Recommendations Home with Assistance, Outpatient PT Equipment Needed for Home Before FWW Discharge Transportation Needs at Discharge Private Vehicle
--- NOTE | 2020-02-09 15:31 | PC.NURSE ---
Day shift note: Patient discharge instructions given, discussed importance of F/U with Ortho on scheduled date 02/27/20, new medications, mobility precautions, and dressing care. Has FWW to go home with. Verbalized understanding of instructions.
== END 2020-02-09 15:38 | disposition home or self-care (01) ==
LOC: OR 11:28 → AC 18:35
PROVIDERS: PCP Nurse Practitioner Family; Referring Provider Orthopaedic Surgery Orthopaedic Surgery of the Spine; Visit Provider Orthopaedic Surgery Orthopaedic Surgery of the Spine
PROC: (CPT 22633; principal; 2020-02-08 13:45)
DX: M51.16 Intervertebral disc disorders with radiculopathy, lumbar region (principal); M48.061 Spinal stenosis, lumbar region without neurogenic claudication; I10 Essential (primary) hypertension; F32.9 Major depressive disorder, single episode, unspecified; F41.9 Anxiety disorder, unspecified
CPT/HCPCS: 22633; 20939; 22853; 22840; 63047; 72100; 76000; 97116; 97161; 97165; 97535; C1776; C9290; J0131; J0330; J0690; J1100; J1170; J2175; J2250; J2405; J2704; J3010; J3410